=== PATIENT | female | born 1985 | race Caucasian/White ===

== ENCOUNTER 2019-03-04 17:57 | Inpatient (IN) ==
[2019-03-04] MEDS ORDERED: OXYTOCIN 30 UNITS/500 ML BAG IV PRN ×2 (18:25→20:33)
[2019-03-04] MEDS ORDERED: LACTATED RINGER'S 1,000 ML IV PRN (18:25)
[2019-03-04 18:44] LABS: Hematocrit (blood only) 39.2 % (37-47); Hemoglobin 14.1 g/dL (12.0-16.0); Mean Corpuscular Hemoglobin 32.4 pg (25-34); Mean Corpuscular Volume 90.1 fL (80-100); Mean Platelet Volume 9.7 fL (7.4-10.4); Platelet Count 172 K/uL (130-400); RDW Coefficient of Variation 12.9 % (11.5-14.5); RDW Standard Deviation 42.3 fL (36.4-46.3); Red Blood Count 4.35 M/uL (4.2-5.4); White Blood Count 8.74 K/uL (4.8-10.8)
[2019-03-04] MEDS ORDERED: BUPIVACAINE 0.25% 30 ML VIAL ONE (19:14)
[2019-03-04] MEDS ORDERED: fentaNYL 2MCG/ML ROPIV 1.25MG/ML 100 ML BAG EPI ONE (19:14)
[2019-03-04] MEDS ORDERED: fentaNYL citrate 100 MCG/2 ML VIAL ONE (19:14)
[2019-03-04] MEDS ORDERED: ePHEDrine sulfate 50 MG/ML AMP ONE (19:14)
[2019-03-04] MEDS ORDERED: ACETAMINOPHEN W/CODEINE #3 1 TAB PO PRN (20:33)
[2019-03-04] MEDS ORDERED: BENZOCAINE 20% AER SPR 82.5 GM CAN EXT PRN (20:33)
[2019-03-04] MEDS ORDERED: ACETAMINOPHEN 325 MG TAB PO PRN (20:33)
[2019-03-04] MEDS ORDERED: SUPERCREAM 0.870% 15 GM JAR EXT PRN (20:33)
[2019-03-04] MEDS ORDERED: DIPHTHERIA/TETANUS/PERTUSSIS 0.5 ML SYR/VIAL IM ONE (20:33)
[2019-03-04] MEDS ORDERED: OXYCODONE/ACETAMINOPHEN 5mg/325mg TAB PO PRN (20:33)
[2019-03-04] MEDS ORDERED: HYDROCORTISONE ACETATE 25 MG SUPP PR PRN (20:33)
[2019-03-04] MEDS: IBUPROFEN 600 MG TAB PO PRN (20:52)
[2019-03-04] MEDS: DOCUSATE SODIUM 100 MG CAP PO SCH (22:17)
--- NOTE | 2019-03-04 22:56 | Delivery Summary ---
DATE OF OPERATION: 03/04/2019 DELIVERY NOTE She is a 2, para 2, blood type is A negative, group B strep negative. Due date 03/15/2019, was admitted with a possible rupture of membranes. On admission, rupture of membranes was confirmed, grossly ruptured. Meconium-stained fluid. She was 3cm, about 100% effaced. She delivered without epidural. She quickly went to full dilatation, delivered a live female via direct occiput anterior position over an intact perineum. She had some terminal bradycardia and this was managed with oxygen and some scalp stimulation after delivery of the head which was done in a controlled fashion. There was a nuchal cord x2. Cord was clamped, cut and then the shoulders were easily delivered. Infant was also suctioned through the mouth and the nose prior to delivery of the body. Apgars deferred to the nurses. Cord blood was taken. With IV Pitocin running, the placenta was removed intact. Meconium stained membranes sent for exam. She was given local. She had a first degree with a laceration up the right labia majora. The extent of the vaginal defect was identified, used heavy Vicryl to approximate the vaginal mucosa out to beyond the hymenal ring, then using interrupted suture to approximate the bulbocavernosus muscle, separate interrupted suture to approximate the perineal body. Additional local was placed on the right side and the labial defect was approximated with 3 mattress sutures of 3-0 Vicryl. Following this, a running subcuticular suture of 2-0 Vicryl was used to approximate the perineal skin edges and then a vaginal examination, removed all sponges in the vagina. Rectal exam revealed no stitches through the rectum. Estimated blood loss was about 300 mL. The patient tolerated the procedure well. I attest to the content of the Intraoperative Record and any orders documented therein. Any exception s are noted below.
[2019-03-05] MEDS: IBUPROFEN 600 MG TAB PO PRN ×3 (04:03→20:09)
[2019-03-05 06:28] LABS: Hematocrit (blood only) 33.7 % (37-47); Mean Corpuscular Hemoglobin 32.3 pg (25-34); Mean Corpuscular Hgb Conc 35.6 g/dL (32-36); Mean Corpuscular Volume 90.6 fL (80-100); Mean Platelet Volume 9.9 fL (7.4-10.4); Platelet Count 146 K/uL (130-400); RDW Coefficient of Variation 12.9 % (11.5-14.5); RDW Standard Deviation 42.5 fL (36.4-46.3); Red Blood Count 3.72 M/uL (4.2-5.4); White Blood Count 8.32 K/uL (4.8-10.8)
[2019-03-05] MEDS: DOCUSATE SODIUM 100 MG CAP PO SCH ×2 (08:36→20:09)
[2019-03-05] MEDS: PRENATAL VITAMIN 1 TAB PO SCH (08:37)
[2019-03-05] MEDS: FERROUS SULFATE 325 MG TAB PO SCH (08:37)
--- NOTE | 2019-03-05 10:04 | Obstetrical Progress Note ---
Date of Service March 05, 2019 Subjective doing well passing gas tolerating diet well ambulating well Physical Exam Constitutional: WD/WN, vitals as above comfortable Results & Data Vital Signs (Past 12 Hours) Vital Signs Temp Pulse Resp BP Pulse Ox 03/05/19 08:00 36.5 C 77 20 105/62 95 03/05/19 03:20 36.5 C 52 L 16 111/77 99 03/04/19 23:15 36.3 C L 70 16 120/84 97 03/04/19 22:15 36.7 C 75 16 116/78 Laboratory Results Laboratory Results - last 48 hr 03/04/19 03/05/19 03/05/19 18:34 06:03 06:03 WBC 8.74 8.32 RBC 4.35 3.72 L Hgb 14.1 12.0 Hct 39.2 33.7 L MCV 90.1 90.6 MCH 32.4 32.3 MCHC 36.0 35.6 RDW Std Deviation 42.3 42.5 RDW Coeff of Nikki 12.9 12.9 Plt Count 172 146 MPV 9.7 9.9 Blood Type Cancelled Antibody Screen Cancelled Screen Cancelled
[2019-03-05] MEDS ORDERED: BISACODYL 5 MG TABEC PO SCH (20:00)
[2019-03-06] MEDS: IBUPROFEN 600 MG TAB PO PRN (06:02)
[2019-03-06 06:41] LABS: Hematocrit (blood only) 35.9 % (37-47); Hemoglobin 12.3 g/dL (12.0-16.0)
[2019-03-06] MEDS ORDERED: BISACODYL 10 MG SUPP PR PRN (09:00)
[2019-03-06] MEDS: FERROUS SULFATE 325 MG TAB PO SCH (09:18)
[2019-03-06] MEDS: DOCUSATE SODIUM 100 MG CAP PO SCH (09:18)
[2019-03-06] MEDS: PRENATAL VITAMIN 1 TAB PO SCH (09:18)
--- NOTE | 2019-03-06 12:32 | Obstetrical Progress Note ---
Date of Service March 06, 2019 Subjective Patient is seen and examined. She feels well, no complaints. Ambulating without dizziness Voiding without difficulty Tolerating regular diet with out N&V Bleeding is minimal No fever/ chills/ CP/ SOB/ N&V/ Leg pain Breast feeding without problems Vital Signs Temp Pulse Pulse Resp BP BP Pulse Ox 03/06/19 08:00 36.6 C 71 18 118/76 97 03/05/19 23:25 36.5 C 59 L 16 112/68 97 03/05/19 20:05 36.3 C L 64 16 126/84 98 03/05/19 15:00 36.4 C L 84 18 111/75 96 Lab Results 03/04/19 03/05/19 03/05/19 Range/Units 18:34 06:03 06:03 WBC 8.74 8.32 (4.8-10.8) K/uL RBC 4.35 3.72 L (4.2-5.4) M/uL Hgb 14.1 12.0 (12.0-16.0) g/dL Hct 39.2 33.7 L (37-47) % MCV 90.1 90.6 (80-100) fL MCH 32.4 32.3 (25-34) pg MCHC 36.0 35.6 (32-36) g/dL RDW Std Deviation 42.3 42.5 (36.4-46.3) fL RDW Coeff of Nikki 12.9 12.9 (11.5-14.5) % Plt Count 172 146 (130-400) K/uL MPV 9.7 9.9 (7.4-10.4) fL Blood Type Cancelled Antibody Screen Cancelled Screen Cancelled 03/06/19 Range/Units 06:22 WBC (4.8-10.8) K/uL RBC (4.2-5.4) M/uL Hgb 12.3 (12.0-16.0) g/dL Hct 35.9 L (37-47) % MCV (80-100) fL MCH (25-34) pg MCHC (32-36) g/dL RDW Std Deviation (36.4-46.3) fL RDW Coeff of Nikki (11.5-14.5) % Plt Count (130-400) K/uL MPV (7.4-10.4) fL Blood Type Antibody Screen Screen PE: General: Alert, orientedx3, NAD Abd: soft, NT, fundus firm, below Umbilicus Perineum intact, Lochia rubra minimal Ext; NT, no edema AP: 33 yo s/p , ppd# 2 VSS Afebrile doing well Continue routine care All questions were answered D/C home , f/u in office Results & Data Vital Signs (Past 12 Hours) Vital Signs Temp Pulse Resp BP Pulse Ox 03/06/19 08:00 36.6 C 71 18 118/76 97
== END 2019-03-06 16:03 | disposition home or self-care (01) | DRG 807 ==
LOC: OPB 17:57 → 4S1 18:00 → 4S2 21:42

== ENCOUNTER 2021-05-16 10:11 | Inpatient (IN) ==
[2021-05-16] MEDS ORDERED: OXYTOCIN 30 UNITS/500 ML BAG IV PRN ×2 (10:18→11:20)
[2021-05-16] MEDS ORDERED: LACTATED RINGER'S 1,000 ML IV PRN (10:18)
[2021-05-16] MEDS ORDERED: OXYTOCIN 30 UNITS/500ML NSS ONE (10:21)
[2021-05-16] MEDS ORDERED: METHYLERGONOVINE MALEATE 0.2 MG/ML AMP ONE (10:54)
[2021-05-16] MEDS ORDERED: miSOPROStoL 200 MCG TAB ONE (10:54)
[2021-05-16] MEDS ORDERED: LIDOCAINE 1% LOCAL 20 ML VIAL ONE (10:58)
[2021-05-16] MEDS ORDERED: SUPERCREAM 0.870% 15 GM JAR EXT PRN (11:20)
[2021-05-16] MEDS ORDERED: BENZOCAINE 20% AER SPR 82.5 GM CAN EXT PRN (11:20)
[2021-05-16] MEDS ORDERED: HYDROCORTISONE ACETATE 25 MG SUPP PR PRN (11:20)
[2021-05-16] MEDS ORDERED: miSOPROStoL 200 MCG TAB PR ONE (11:20)
[2021-05-16] MEDS ORDERED: ACETAMINOPHEN 325 MG TAB PO PRN (11:20)
[2021-05-16] MEDS ORDERED: DIPHTHERIA/TETANUS/PERTUSSIS 0.5 ML SYR/VIAL IM ONE (11:20)
[2021-05-16] MEDS ORDERED: bisacodyL 10 MG SUPP PR PRN (11:20)
[2021-05-16] MEDS ORDERED: METHYLERGONOVINE MALEATE 0.2 MG/ML AMP IM ONE (11:20)
--- NOTE | 2021-05-16 11:24 | Obstetrical Progress Note ---
Date of Service May 16, 2021 Assessment & Plan (1) Term : Plan: Pt presented top L&D for labor check she was full dilated. Pt was initially evaluated by Ivelisse I arrived later to deliver Admission and Anticipated Discharge Date Admission Date: May 16, 2021 Results & Data ([facility]) Vital Signs (Past 12 Hours) Vital Signs Pulse BP 05/16/21 11:18 129 H 125/79 05/16/21 10:55 90 128/67
[2021-05-16] MEDS ORDERED: IBUPROFEN 600 MG TAB PO ONE (11:31)
--- NOTE | 2021-05-16 11:47 | Delivery Summary ---
DATE OF SERVICE: 05/16/2021 DELIVERY NOTE: This is a 35-year-old G3, P2, presented to labor and delivery. She was fully dilated on arrival. The patient was admitted and went on to deliver a live male in right occiput ante rior presentation. There was no nuchal cord. Infant was delivered. Delayed cord clamp was performe d after 1 minute. Cord blood was obtained. Placenta was spontaneously delivered. Inspection of the placenta shows normal-looking placenta. The patient's was complicated by gestational diab etes class II, on insulin. Placenta is therefore sent to pathology for pathological analysis. Infan t's weight and Apgars are in the pediatric record. Inspection of the perineum showed a second-degree midline laceration with right labial tear. This wa s repaired with 2-0 and 3-0 Vicryl in layers. There is good hemostasis post-repair. Rectal exam pos t-repair showed good sphincter tone. No sutures are palpated in the rectum. All instruments are removed from the vagina including sponges, needles, and retractors. Baby and mot her are doing well in recovery. Job ID: [id number]
[2021-05-16 12:00] LABS: Hematocrit (blood only) 43.9 % (37-47); Hemoglobin 15.3 g/dL (12.0-16.0); Mean Corpuscular Hemoglobin 32.6 pg (25-34); Mean Corpuscular Hgb Conc 34.9 g/dL (32-36); Mean Corpuscular Volume 93.6 fL (80-100); Platelet Count 166 K/uL (130-400); RDW Coefficient of Variation 12.9 % (11.5-14.5); RDW Standard Deviation 43.5 fL (36.4-46.3); Red Blood Count 4.69 M/uL (4.2-5.4); White Blood Count 14.36 K/uL (4.8-10.8)
[2021-05-16] MEDS: IBUPROFEN 600 MG TAB PO PRN ×2 (16:12→20:09)
[2021-05-16] MEDS: DOCUSATE SODIUM 100 MG CAP PO SCH (21:42)
[2021-05-17] MEDS: IBUPROFEN 600 MG TAB PO PRN ×3 (00:21→17:19)
[2021-05-17 08:14] LABS: Hematocrit (blood only) 39.6 % (37-47); Hemoglobin 13.8 g/dL (12.0-16.0); Mean Corpuscular Hemoglobin 32.6 pg (25-34); Mean Corpuscular Hgb Conc 34.8 g/dL (32-36); Mean Corpuscular Volume 93.6 fL (80-100); Mean Platelet Volume 9.7 fL (7.4-10.4); Platelet Count 143 K/uL (130-400); RDW Coefficient of Variation 12.9 % (11.5-14.5); RDW Standard Deviation 43.8 fL (36.4-46.3); Red Blood Count 4.23 M/uL (4.2-5.4); White Blood Count 9.85 K/uL (4.8-10.8)
--- NOTE | 2021-05-17 10:13 | Obstetrical Progress Note ---
Date of Service May 17, 2021 Subjective Ambulation: ambulating normally Voiding: no voiding problems Passing Gas:: Yes Diet Tolerance:: regular diet Feeding Type:: breast feeding Current Pain Level(1-10): 0 doing well Physical Exam Constitutional WD/WN, vitals as above well developed and comfortable abdomen soft and non-tender uterus firm below U no edema neg Anne's for tent d/c in AM Results & Data ([facility]) Vital Signs (Past 12 Hours) Vital Signs Temp Pulse Pulse Resp BP BP Pulse Ox 05/17/21 09:58 36.7 C 62 18 112/77 97 05/17/21 08:15 36.7 C 62 18 112/77 97 05/17/21 03:05 36.7 C 63 16 106/68 97 05/16/21 23:15 36.6 C 65 16 115/78 96
[2021-05-17] MEDS: DOCUSATE SODIUM 100 MG CAP PO SCH ×2 (10:19→20:07)
[2021-05-17] MEDS: PRENATAL VITAMIN 1 TAB PO SCH (10:19)
[2021-05-17] MEDS ORDERED: bisacodyL 5 MG TABEC PO SCH (20:00)
[2021-05-18] MEDS: IBUPROFEN 600 MG TAB PO PRN ×2 (05:27→08:57)
[2021-05-18 06:42] LABS: Hematocrit (blood only) 42.5 % (37-47); Hemoglobin 14.3 g/dL (12.0-16.0)
[2021-05-18] MEDS ORDERED: MEASLES, MUMPS & RUBELLA VIRUS VIAL SQ ONE (08:20)
[2021-05-18] MEDS: PRENATAL VITAMIN 1 TAB PO SCH (08:57)
[2021-05-18] MEDS: DOCUSATE SODIUM 100 MG CAP PO SCH (08:57)
--- NOTE | 2021-05-18 09:00 | Obstetrical Progress Note ---
Date of Service May 18, 2021 Subjective Ambulation: ambulating normally Voiding: no voiding problems Passing Gas:: Yes Diet Tolerance:: regular diet Lochia:: Small Feeding Type:: breast feeding Current Pain Level(1-10): 0 doing well plans for d/c today Physical Exam Constitutional WD/WN, vitals as above comfortable abdomen soft and non-tender fundus firm below U for d/c home Results & Data ([facility]) Vital Signs (Past 12 Hours) Vital Signs Temp Pulse Resp BP Pulse Ox 05/18/21 07:59 36.7 C 66 16 112/73 97 05/18/21 00:40 36.6 C 72 16 114/76 97 Laboratory Results Laboratory Results - last 48 hr 05/16/21 05/16/21 05/16/21 10:22 10:35 11:33 WBC 14.36 H RBC 4.69 Hgb 15.3 Hct 43.9 MCV 93.6 MCH 32.6 MCHC 34.9 RDW Std Deviation 43.5 RDW Coeff of Nikki 12.9 Plt Count 166 MPV 10.0 POC Glucose 84 SARS-CoV-2, RNA, NAAT POSITIVE A* Blood Type Antibody Screen Screen 05/17/21 05/17/21 05/18/21 07:52 07:52 06:24 WBC 9.85 RBC 4.23 Hgb 13.8 14.3 Hct 39.6 42.5 MCV 93.6 MCH 32.6 MCHC 34.8 RDW Std Deviation 43.8 RDW Coeff of Nikki 12.9 Plt Count 143 MPV 9.7 POC Glucose SARS-CoV-2, RNA, NAAT Blood Type A Negative Antibody Screen NEGATIVE Screen Negative
== END 2021-05-18 12:30 | disposition home or self-care (01) | DRG 807 ==
LOC: OPB 10:11 → 4S1 10:12 → 3N 15:57